=== PATIENT | female | born 1955 | race Caucasian/White ===

== ENCOUNTER 2017-04-16 10:00 | Emergency (ER) | payer SELFPAY | END 2017-04-16 10:45 | disposition home or self-care (01) | LOC: D.ER 10:00 | DX: S49.91XA Unspecified injury of right shoulder and upper arm, initial encounter (principal); V43.52XA Car driver injured in collision with other type car in traffic accident, initial encounter; Y93.89 Activity, other specified; Y92.410 Unspecified street and highway as the place of occurrence of the external cause; R51 Headache ==

== ENCOUNTER 2017-04-18 03:11 | Emergency (ER) | payer SELFPAY | END 2017-04-18 05:03 | disposition home or self-care (01) | LOC: D.ER 03:11 | DX: S16.1XXA Strain of muscle, fascia and tendon at neck level, initial encounter (principal); V43.52XA Car driver injured in collision with other type car in traffic accident, initial encounter; Y93.89 Activity, other specified; Y92.410 Unspecified street and highway as the place of occurrence of the external cause; F17.200 Nicotine dependence, unspecified, uncomplicated ==